=== PATIENT | female | born 1965 | race Two or more races ===

== ENCOUNTER 2025-06-08 11:38 | Emergency (ER) | payer OTHER ==
[~2025-06-08] VITALS: Ht 165.1 cm; Wt 64.9 kg
[2025-06-08] MEDS ORDERED: 0.9 % SODIUM CHLORIDE 1,000 ML IV ONE (14:00)
[2025-06-08] MEDS ORDERED: CEFTRIAXONE SODIUM 1,000 MG VIAL IV ONE (14:00)
[2025-06-08] MEDS ORDERED: KETOROLAC TROMETHAMINE 30 MG VIAL IV ONE (14:00)
[2025-06-08] MEDS ORDERED: TAMSULOSIN HCL 0.4 MG CAP PO ONE (14:00)
[2025-06-08 14:24] LABS: BASO % 0.6 % (0.1-1.2); EOS # 0.08 (0.04-0.54); EOS % 0.7 % (0.7-7.0); LYMPH # 1.49 (1.18-3.74); LYMPH % 13.0 % (19.3-53.1); MEAN PLATELET VOLUME 8.80 fl (9.4-12.4); MONO # 0.97 (0.24-0.82); MONO % 8.5 % (4.7-12.5); NEUT # 8.81 (1.56-6.13); NEUT % 76.9 % (34.0-71.1); RED CELL DISTRIBUTION WIDTH 13.5 % (11.6-14.4)
[2025-06-08 14:48] LABS: ALT/SGPT 19.0 U/L (12-78); AST/SGOT 14.0 U/L (15-37); BILIRUBIN TOTAL 0.57 mg/dL (0.3-1.2); BUN CREA RATIO 17.0 (7.0-25.0); CREATININE SERUM 1.12 mg/dL (0.55-1.02); GFR 49.45; GLOBULINA 3.7 G/DL (2.4-3.5); GLUCOSE FASTING 99.0 mg/dL (65-100); OSMOLALITY SERUM 287.0 MOSM/KG (275-295)
[2025-06-08 15:06] LABS: URINE APPEARANCE Clear; URINE BILIRRUBIN Negative (NEGATIVE); URINE BLOOD Moderate; URINE COLOR Yellow; URINE GLUCOSE Negative (NEGATIVE); URINE KETONE Negative (NEGATIVE); URINE LEUKOCYTE Trace; URINE NITRATE Negative; URINE PROTEIN Negative (NEGATIVE); URINE UROBILINOGEN 0.2 E.U./dl
[2025-06-08 15:10] LABS: URINE BACTERIA 30.8 uL (0.0-1933); URINE EPITHELIAL CELLS 13.4 uL (0.0-38.8); URINE RBC 3.8 uL (0.0-20.8); URINE WBC 26.3 uL (0.0-23.2)
[2025-06-08 15:13] LABS: URINE CAST 0.42 uL (0.0-1.40)
[2025-06-08] MEDS ORDERED: LEVSIN/SL0.125 MG SL (15:23)
[2025-06-08] MEDS ORDERED: METRONIDAZOLE500 MG PO (15:23)
[2025-06-08] MEDS ORDERED: PROBIOTIC1 EAC2 PO (15:23)
[2025-06-08] MEDS ORDERED: NORFLEX100MG PO (15:23)
[2025-06-08] MEDS ORDERED: TAMSULOSIN HCL0.4 MG PO (15:23)
[2025-06-08] MEDS ORDERED: CIPRO500 MG PO (15:23)
== END 2025-06-08 15:32 | disposition home or self-care (01) ==
LOC: ER 11:39
PROVIDERS: General Practice
DX: R10.A1 Flank pain, right side (principal); Z88.8 Allergy status to other drugs, medicaments and biological substances; N20.0 Calculus of kidney; N39.0 Urinary tract infection, site not specified; N20.1 Calculus of ureter; K57.30 Diverticulosis of large intestine without perforation or abscess without bleeding